=== PATIENT | male | born 1940 | race Caucasian/White ===

== ENCOUNTER 2020-07-11 08:40 | Inpatient (IN) ==
--- NOTE | 2020-07-12 10:07 | XRay Report ---
CLINICAL INFORMATION: preop COMPARISON: 06/30/2019 FINDINGS: Heart size, mediastinum and pulmonary vessels are normal. There is minor bibasilar atelectasis, but no infiltrates or effusions. 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 IMPRESSION: No acute disease Interpreted and Authenticated by: Aly Marquez 07/12/20
[2020-07-12 14:49] LABS: Basophils # (Auto) 0.04 K/mcL (0.00-0.20); Basophils % (Auto) 0.6 % (0.0-2.0); Eosinophils # (Auto) 0.41 K/mcL (0.00-0.70); Eosinophils % (Auto) 6.3 % (0.0-7.0); Hematocrit 37.9 % (41.0-55.0); Hemoglobin 11.9 g/dL (13.5-16.5); Lymphocytes # (Auto) 1.39 K/mcL (1.50-4.80); Lymphocytes % (Auto) 21.3 % (15.0-49.0); Mean Cell Volume 92.9 fL (80.0-100.0); Mean Corpuscular HGB Conc 31.4 g/dL (31.0-36.0); Mean Platelet Volume 10.2 fL (7.4-10.4); Monocytes # (Auto) 0.82 K/mcL (0.10-0.90); Monocytes % (Auto) 12.6 % (1.0-12.0); Neutrophils % (Auto) 59.2 % (38.0-78.0); Platelet Count 238 K/mcL (140-440); RBC 4.08 M/mcL (4.50-5.90); Red Cell Distribution Width 13.7 % (11.5-14.5); WBC 6.5 K/mcL (4.5-11.0)
[2020-07-12 16:05] LABS: Blood Urea Nitrogen 17 mg/dL (8-23); Calcium 9.6 mg/dL (8.6-10.4); Carbon Dioxide 24 mmol/L (22-30); Chloride 104 mmol/L (96-108); Glomerular Filtration Rate 90; Glucose 77 mg/dL (70-105)
[2020-07-12 16:24] LABS: Estimated Average Glucose(eAG) 111 mg/dL; Hemoglobin A1C 5.5 % Hgb (4.0-6.0)
[2020-07-18] MEDS ORDERED: SCOPOLAMINE 1 PATCH PATCH TOPICAL PRN (11:30)
[2020-07-18] MEDS ORDERED: IPRATROPIUM/ALBUTEROL 3 ML AMPUL.NEB NEB PRN ×2 (11:30→15:46)
[2020-07-18] MEDS ORDERED: VANCOMYCIN 1,000 MG in 0.9 % SODIUM CHLORIDE 250 ML IV ONE (13:17)
[2020-07-18] MEDS ORDERED: LEVOFLOXACIN 500 MG/100 ML BAG IV ONE (13:17)
[2020-07-18] MEDS ORDERED: DEXAMETHASONE 10 MG/ML VIAL ONE (13:37)
[2020-07-18] MEDS ORDERED: fentaNYL 100 MCG/2 ML VIAL IV ONE (13:37)
[2020-07-18] MEDS ORDERED: GLYCOPYRROLATE 0.2 MG/ML VIAL IV ONE (13:37)
[2020-07-18] MEDS ORDERED: HYDROmorphone 1 MG/ML SYRINGE ONE (13:37)
[2020-07-18] MEDS ORDERED: PROPOFOL 200 MG/20 ML VIAL IV ONE (13:37)
[2020-07-18] MEDS ORDERED: KETAMINE 100 MG/ML ML ONE (13:37)
[2020-07-18] MEDS ORDERED: ONDANSETRON 4 MG/2 ML VIAL ONE (13:37)
[2020-07-18] MEDS ORDERED: ACETAMINOPHEN 1,000 MG/100 ML BOTTLE IV ONE (15:46)
[2020-07-18] MEDS ORDERED: MEPERIDINE 25 MG/ML SYRINGE IV PRN (15:46)
[2020-07-18] MEDS ORDERED: ePHEDrine 50 MG/ML AMPUL IV PRN (15:46)
[2020-07-18] MEDS ORDERED: ONDANSETRON 4 MG/2 ML VIAL IV PRN ×2 (15:46→16:22)
[2020-07-18] MEDS ORDERED: fentaNYL 100 MCG/2 ML VIAL IV PRN (15:46)
[2020-07-18] MEDS ORDERED: PROMETHAZINE 25 MG/ML VIAL IV PRN (15:46)
[2020-07-18] MEDS ORDERED: LACTATED RINGERS 1,000 ML IV SCH (16:00)
[2020-07-18] MEDS ORDERED: OPIUM/BELLADONNA ALKALOIDS 60 MG SUPP.RECT PR ONE (16:08)
[2020-07-18] MEDS ORDERED: ACETAMINOPHEN 325 MG TABLET PO PRN (16:22)
[2020-07-18] MEDS ORDERED: CALCIUM CARBONATE 500 MG TAB.CHEW CHEWED PRN (16:22)
[2020-07-18] MEDS ORDERED: MAG HYDROX/AL HYDROX/SIMETH 30 ML ORAL.SUSP PO PRN (16:22)
[2020-07-18] MEDS ORDERED: MAGNESIUM HYDROXIDE 30 ML ORAL.SUSP PO PRN (16:22)
--- NOTE | 2020-07-18 16:22 | Brief Operative Note ---
Brief Operative Note Date of procedure: 07/18/20 Pre-op diagnosis: bladder outlet obstruction Post-op diagnosis: same Procedure: bipolar transurethral resection prostate Grafts/Implants: Yes ([address] escamilla catheter ) Anesthesia: GETA Findings: Massive gland with marked residual tissue remaining despite previous photovaporization of the prostate, large circumferential median lobe Complications: none Surgeon: Ethan Paredes Specimens Removed/Pathology: other (prostate chips) Condition: stable Disposition: PACU
[2020-07-18] MEDS ORDERED: VANCOMYCIN PER PHARMACY IV SCH (16:30)
[2020-07-18 17:01] LABS: POC Blood Urea Nitrogen 13 mg/dL (6-20); POC CO2 27 mmol/L (22-30); POC Calcium, Ionized 1.22 mmEq/L (1.16-1.32); POC Chloride 100 mEq/L (96-108); POC Creatinine 0.8 mg/dL (0.6-1.2); POC Glucose, Random 101 mg/dL (70-105); POC Hematocrit 35 % (41-55); POC Potassium 4.1 mEql/L (3.3-5.1); POC Sodium 138 mEq/L (133-145)
[2020-07-18] MEDS: LEVOFLOXACIN 500 MG TABLET PO SCH (17:17)
[2020-07-18] MEDS: INSULIN LISPRO 1 UNIT/0.01 ML UNIT SQ SCH ×2 (17:26→21:15)
[2020-07-18] MEDS: metFORMIN 500 MG TABLET PO SCH (17:26)
[2020-07-18] MEDS: OPIUM/BELLADONNA ALKALOIDS 60 MG SUPP.RECT PR SCH (17:27)
[2020-07-18] MEDS: HYDROcodone/APAP 5/325MG TABLET PO PRN (19:18)
[2020-07-18] MEDS: VANCOMYCIN 1,250 MG in 0.9 % SODIUM CHLORIDE 500 ML IV SCH (21:25)
[2020-07-18] MEDS: SENNOSIDES 1 TABLET PO SCH (21:30)
[2020-07-18] MEDS: DOCUSATE SODIUM 100 MG CAPSULE PO SCH (21:30)
[2020-07-18] MEDS: SIMVASTATIN 40 MG TABLET PO SCH (21:30)
[2020-07-18] MEDS: 0.9 % SODIUM CHLORIDE 10 ML SYRINGE IV SCH (21:31)
[2020-07-19] MEDS: OPIUM/BELLADONNA ALKALOIDS 60 MG SUPP.RECT PR SCH ×4 (00:20→18:05)
[2020-07-19] MEDS: 0.9 % SODIUM CHLORIDE 10 ML SYRINGE IV SCH ×3 (06:31→20:58)
[2020-07-19] MEDS: metFORMIN 500 MG TABLET PO SCH ×2 (07:26→16:57)
[2020-07-19] MEDS: INSULIN LISPRO 1 UNIT/0.01 ML UNIT SQ SCH ×4 (07:27→20:56)
[2020-07-19] MEDS: LOSARTAN 50 MG TABLET PO SCH (08:52)
[2020-07-19] MEDS: DOCUSATE SODIUM 100 MG CAPSULE PO SCH ×2 (08:52→20:56)
[2020-07-19] MEDS: LEVOFLOXACIN 500 MG TABLET PO SCH (08:52)
[2020-07-19] MEDS: FLUTICASONE PROPIONATE INH SCH (08:53)
[2020-07-19] MEDS ORDERED: ESCITALOPRAM 20 MG TABLET PO SCH (09:00)
[2020-07-19] MEDS: VANCOMYCIN 1,250 MG in 0.9 % SODIUM CHLORIDE 500 ML IV SCH ×2 (10:45→21:10)
--- NOTE | 2020-07-19 11:00 | Internal Med Progress Note ---
SUBJECTIVE Subjective Patient information: Note initiated : 07/19/20 at 10:52 am Service Date, if different from initiated Date: [] Patient: Papa Villanueva 80 y/o M admitted on 07/18/20 for Bipolar Transurethral Resection of Prostate. Patient did well overnight but feels fatigued. No fevers,no chills, no nausea, no emesis. Was able to get out of bed to chair but with assist Tolerating CBI and it is pink colored on slow drip all night. Rare burning to tip of penis. Chief Complaint: [] Constitutional Vitals: Vital Signs Temp Pulse Resp BP Pulse Ox 97.6 F 74 16 117/64 95 07/19/20 08:00 07/19/20 08:00 07/19/20 08:00 07/19/20 08:00 07/19/20 08:00 Period Temp Pulse Resp BP Sys/Ruiz Pulse Ox Last 24 Hr 97.6 F-98.4 F 50-77 16-20 112-150/59-81 92-100 Intake and Output 07/18/20 07/19/20 07/19/20 21:59 05:59 13:59 Intake Total 4450 42880 Output Total 5650 8550 400 Balance -1200 1750 -400 Weight 187 lb 6.4 oz Intake & Output: Intake & Output 07/18/20 07/19/20 07/19/20 21:59 05:59 13:59 Intake Total 4450 13602 Output Total 5650 8550 400 Balance -1200 1750 -400 Weight 187 lb 6.4 oz Intake: IV 1450 500 Lactated Ringers 1,000 ml @ 20 1000 mls/hr IV .Q24H JOE Rx#: [id number] Vancomycin 1,000 mg In Sodium 250 Chloride 0.9% 250 ml @ 250 mls/ hr IV ONCE ONE Rx#:[id number] Vancomycin 1,250 mg In Sodium 500 Chloride 0.9% 500 ml @ 333.3 mls/hr IV Q12H JOE Rx#: [id number] Oral 800 CBI Fluid 3000 9000 Output: Urine Catheter Amount 1200 400 CBI Fluid 4450 8550 Other: Urine Appearance Hematuria Clear Hematuria Small Blood Clots 3-way Urethral Clear Clear Hematuria Hematuria Small Blood Clots Urine Color [place] Blood Tinged 3-way Urethral [place] Blood Tinged Urine Odor Normal Normal 3-way Urethral Normal Normal Net CBI 1450 300 General appearance: cooperative and no acute distress Head Head exam: Present atraumatic and normocephalic Eye Eye exam: Present EOMI and normal appearance; Absent scleral icterus Respiratory Respiratory exam: Absent respiratory distress, stridor and wheezes Cardiovascular Cardiovascular exam: Present RRR GI/Abdominal GI/Abdominal exam: Present soft and tenderness (mild SP tenderness to deep palpation ); Absent distended, guarding, mass and rebound exam: Present normal inspection; Absent scrotal swelling, testicular tenderness and urethral discharge Additional comments: catheter in good position draining pink tinged urine Neurological Exam Neurological exam: Present alert and oriented X3 Psychiatric Psychiatric exam: Present normal affect and normal mood; Absent agitated and anxious OBJ DATA Labs CBC & Chem 7: 07/12/20 09:50 07/12/20 09:50 Labs: Abnormal Lab Results 07/18/20 16:36 POC Hct 35 L Meds: Medications Acetaminophen (Tylenol) 650 mg PO Q6HP PRN; Protocol PRN Reason: Per Pain Protocol/Fever > 101 Hydrocodone Bitart/Acetaminophen ([place] 5/325mg) 1 tab PO Q4HP PRN; Protocol PRN Reason: Per Pain Protocol Last Admin: 07/18/20 19:18 Dose: 1 tab Documented by: Al Hydrox/Mg Hydrox/Simethicone (Maalox) 30 ml PO Q6HP PRN PRN Reason: Dyspepsia Belladonna Alkaloids/Opium (B & O) 60 mg UT Q6H [facility] Last Admin: 07/19/20 06:30 Dose: 60 mg Documented by: Calcium Carbonate/Glycine (Tums) 1,000 mg CHEWED Q4HP PRN PRN Reason: Dyspepsia Diagnostic Test (Pha) (Accu-Chek) [address] [facility] Last Admin: 07/19/20 07:27 Dose: 1 each Documented by: Docusate Sodium (Colace) 100 mg PO BID [facility] Last Admin: 07/19/20 08:52 Dose: 100 mg Documented by: Vancomycin HCl 1,250 mg/ (Sodium Chloride) 500 mls @ 333.3 mls/hr IV Q12H [facility] Last Admin: 07/19/20 10:45 Dose: 333.3 mls/hr Documented by: Insulin Human Lispro (Humalog) 0 unit SQ [facility]; Protocol Last Admin: 07/19/20 07:27 Dose: 2 units Documented by: Levofloxacin (Levaquin) 500 mg PO DAILY [facility]; Protocol Last Admin: 07/19/20 08:52 Dose: 500 mg Documented by: Losartan Potassium (Cozaar) 50 mg PO DAILY [facility] Last Admin: 07/19/20 08:52 Dose: 50 mg Documented by: Magnesium Hydroxide (Milk Of Magnesia) 30 ml PO DAILYP PRN PRN Reason: Constipation Metformin HCl (Glucophage) 500 mg PO BIDCC [facility] Last Admin: 07/19/20 07:26 Dose: 500 mg Documented by: Ondansetron HCl (Zofran) 4 mg IV Q6HP PRN PRN Reason: Nausea And Vomiting Fluticasone Propionate 50 Mcg/Actuation Inhaler 1 dose INH DAILY [facility] Last Admin: 07/19/20 08:53 Dose: Not Given Documented by: Senna (Senokot) 2 tab PO [facility] Last Admin: 07/18/20 21:30 Dose: 2 tab Documented by: Simvastatin (Zocor) 40 mg PO [facility] Last Admin: 07/18/20 21:30 Dose: 40 mg Documented by: Sodium Chloride (Saline Flush) 10 ml IV Q8 [facility] Last Admin: 07/19/20 06:31 Dose: 10 ml Documented by: Vancomycin HCl (Vancomycin Per Pharmacy) 1 order IV UD [facility]; Protocol A/P Narrative A/P Narrative: POD#1 Bipolar TURP very large gland -Urine pink tinged on CBI -patient feels pretty fatigued -will get CBC, BMP, Mag, Phos and check -see how he does with attempt ambulate with assist today -likely cont CBI and home tomorrow -cont antibiotics while inpatient (vancomycin and levaquin) 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
[2020-07-19 12:04] LABS: Basophils # (Auto) 0.02 K/mcL (0.00-0.20); Basophils % (Auto) 0.1 % (0.0-2.0); Eosinophils # (Auto) 0.01 K/mcL (0.00-0.70); Eosinophils % (Auto) 0.1 % (0.0-7.0); Hematocrit 40.2 % (41.0-55.0); Hemoglobin 12.8 g/dL (13.5-16.5); Lymphocytes % (Auto) 9.6 % (15.0-49.0); Mean Cell Volume 92.8 fL (80.0-100.0); Mean Corpuscular HGB Conc 31.8 g/dL (31.0-36.0); Mean Platelet Volume 10.3 fL (7.4-10.4); Monocytes # (Auto) 1.29 K/mcL (0.10-0.90); Monocytes % (Auto) 9.6 % (1.0-12.0); Neutrophils % (Auto) 80.6 % (38.0-78.0); Platelet Count 252 K/mcL (140-440); RBC 4.33 M/mcL (4.50-5.90); Red Cell Distribution Width 13.4 % (11.5-14.5); WBC 13.5 K/mcL (4.5-11.0)
[2020-07-19 12:26] LABS: Blood Urea Nitrogen 15 mg/dL (8-23); Calcium 9.3 mg/dL (8.6-10.4); Carbon Dioxide 25 mmol/L (22-30); Chloride 102 mmol/L (96-108); Glomerular Filtration Rate 81; Glucose 152 mg/dL (70-105); Phosphorous 3.7 mg/dL (2.5-4.5)
[2020-07-19] MEDS ORDERED: cefTRIAXone 2 GM in DEXTROSE 5% IN WATER 50 ML IV SCH (14:00)
[2020-07-19] MEDS: SIMVASTATIN 40 MG TABLET PO SCH (20:55)
[2020-07-19] MEDS: SENNOSIDES 1 TABLET PO SCH (20:55)
[2020-07-19] MEDS: HYDROcodone/APAP 5/325MG TABLET PO PRN (20:55)
[2020-07-20] MEDS: OPIUM/BELLADONNA ALKALOIDS 60 MG SUPP.RECT PR SCH ×4 (00:28→18:23)
[2020-07-20] MEDS: 0.9 % SODIUM CHLORIDE 10 ML SYRINGE IV SCH ×2 (05:36→17:53)
[2020-07-20] MEDS: LEVOFLOXACIN 500 MG TABLET PO SCH (10:31)
[2020-07-20] MEDS: LOSARTAN 50 MG TABLET PO SCH (10:31)
[2020-07-20] MEDS: metFORMIN 500 MG TABLET PO SCH ×2 (10:31→17:51)
[2020-07-20] MEDS: DOCUSATE SODIUM 100 MG CAPSULE PO SCH (10:31)
[2020-07-20] MEDS: INSULIN LISPRO 1 UNIT/0.01 ML UNIT SQ SCH ×3 (10:31→17:54)
[2020-07-20] MEDS: VANCOMYCIN 1,250 MG in 0.9 % SODIUM CHLORIDE 500 ML IV SCH (10:32)
[2020-07-20] MEDS: FLUTICASONE PROPIONATE INH SCH (10:32)
[2020-07-20 14:33] LABS: Eosinophils % (Manual) 4 % (0-7); Hematocrit 35.6 % (41.0-55.0); Hemoglobin 11.3 g/dL (13.5-16.5); Lymphocytes % 10 % (15-49); Mean Cell Volume 93.4 fL (80.0-100.0); Mean Corpuscular HGB Conc 31.7 g/dL (31.0-36.0); Mean Platelet Volume 11.3 fL (7.4-10.4); Monocytes % (Manual) 10 % (1-12); Platelet Count 137 K/mcL (140-440); Platelet Estimate NORMAL (Normal); RBC 3.81 M/mcL (4.50-5.90); RBC Morphology NORMAL (Normal); Red Cell Distribution Width 13.9 % (11.5-14.5); Segmented Neutrophils % 76 % (38-78); WBC 11.5 K/mcL (4.5-11.0)
[2020-07-20 14:40] LABS: Blood Urea Nitrogen 15 mg/dL (8-23); Calcium 8.8 mg/dL (8.6-10.4); Carbon Dioxide 24 mmol/L (22-30); Chloride 104 mmol/L (96-108); Glomerular Filtration Rate 86; Glucose 93 mg/dL (70-105)
--- NOTE | 2020-07-20 14:45 | XRay Report ---
CLINICAL INFORMATION: Post op confusion COMPARISON: 07/12/2020 FINDINGS: Heart size, mediastinum and pulmonary vessels are normal. There is minor right lower lobe atelectasis. No infiltrates or effusions. Bones and soft tissues normal. IMPRESSION: Minor right lower lobe atelectasis Interpreted and Authenticated by: Aly Marquez 07/20/20
--- NOTE | 2020-07-20 19:44 | Discharge Plan ---
Discharge Plan Patient/Caregiver Discharge Instructions Activity: increase activity as tolerated Diet: Regular Diet Activity Restrictions/Additional Instructions: -drink plenty of water -urinate every few hours on a schedule. Cut off your fluids 2 hours prior to bedtime and empty your bladder before bed. -some blood in the urine is NORMAL - pink tinged to [place] colored - as your prostate heals -no strenuous activity or heavy lifting or abdominal straining as this can increase the blood in the urine -avoid constipation, this is a source abdominal straining and can increase blood in the urine -It is normal to have urgency and some episodes poor bladder control as your prostate is healing. This will improve. Wear a pad if needed -if any significant blood in the urine, clots, trouble urinating, inability to urinate or any worsening of condition - call the office or come to the emergency room -we are giving you an antibiotics for 5 days. Do NOT take your citalopram (escitalopram) until you finish the antibiotic (levofloxacin) -you can take the pyridium (turns your urine orange) for bladder discomfort -you can take 500 mg acetaminophen (Tylenol) with 400-600 mg Ibuprofen (Motrin) up to three times a day with food as needed for pain. They work better if you take them together at the same time. Prescriptions: New levofloxacin 500 mg tablet 500 mg PO QDAY Qty: 7 RF: 0 phenazopyridine [Pyridium] 100 mg tablet 100 mg PO TID PRN (Reason: bladder pain) Qty: 7 RF: 0 Continued metformin 1,000 mg tablet 500 mg PO BID RF: 0 omega-3 fatty acids-fish oil 684-1,200 mg capsule,delayed release(DR/EC) 1 cap PO BID RF: 0 aspirin [Adult Aspirin Regimen] 81 mg tablet,delayed release (DR/EC) 81 mg PO QDAY RF: 0 irbesartan 150 mg tablet 150 mg PO QDAY RF: 0 multivitamin,to-srpc-Na-FA-min 1 TAB tablet 1 tab PO DAILY RF: 0 simvastatin 40 MG tablet 40 mg PO HS RF: 0 polyethylene glycol 3350 [Miralax] 17 gram/dose powder 17 g PO BID Qty: 119 RF: 0 fluticasone propionate 50 mcg/actuation Blister With Device 1 inh INHALATION DAILY RF: 0 carbamide peroxide [Debrox] 6.5 % Drops 5 drp OTIC (EAR) Q12H RF: 0 Discontinued phenazopyridine 200 MG tablet 200 mg PO TIDP PRN (Reason: Pain) Qty: 8 RF: 0 tamsulosin 0.4 mg capsule 0.8 mg PO QHS Qty: 60 RF: 2 ciprofloxacin HCl [Cipro] 500 mg tablet 500 mg PO BID Qty: 30 RF: 0 escitalopram oxalate 20 mg tablet 20 mg PO DAILY Qty: 30 RF: 0 No Action (DME) BIPAP machine Qty: 1 RF: 0 (DME) CPAP Qty: 1 RF: 0 Follow Up Plan Follow up with: Ethan Paredes MD [Physician] - 07/29/20 8:30 am Patient Disposition: Home, Self-Care Discharge Orders: Discharge Order (Routine); Ordered 07/20/20 Ordered By: Ethan Paredes Interventions Interventions: IV at Discharge Last Done: 07/20/20 18:18
--- NOTE | 2020-07-21 00:31 | Operative Note ---
Operative Note Operative Note: Date of procedure: 07/18/20 Pre-op diagnosis: bladder outlet obstruction Post-op diagnosis: same Procedure: bipolar transurethral resection prostate Grafts/Implants: Yes ([address]amilla catheter ) Anesthesia: GETA Findings: Massive gland with marked residual tissue remaining despite previous photovaporization of the prostate, large circumferential median lobe Complications: none Surgeon: Ethan Paredes Specimens Removed/Pathology: other (prostate chips) Condition: stable Disposition: PACU Informed consent was obtained, and preoperative antibiotics were given. Patient was taken to the operative suite placed on the table in the supine position. Adequate anesthesia was initiated and patient was placed in the dorsolithotomy position and prepped and draped in usual sterile fashion. We began the procedure with the resectoscope with the visual obturator which was guided into the urethra through the very large prostate and into the bladder. The visual obturator was removed and the resection loop and handle were employed. The prostate was evaluated and seen to be 4 cm with markedly large residual lateral lobe tissue and a circumferential median lobe. Minimal evidence of any previous clearance of prostate tissue with his previous photo vaporization of the prostate other than some scar tissue adhering a portion of the lateral lobes together. We began the procedure with some resection of the very large heaped up median lobe. The median lobe was very vascular and challenging resection was required until we were able to level such closer to the trigone and achieve hemostasis. Attention was then turned to each lateral lobe, given their excessive length they had to be addressed in sections. Greater than 50% additional procedural time was required given the large size of the prostate and the marked amount of tissue. At the end of the resection, the 12:00 portion of the median lobe had a ball-valve like anatomy causing such to occasionally obstructed the bladder neck. We were able to resect around the tethered portion of it and free up the large chunk of tissue. At the end of the case the bladder neck and the prostatic fossa were wide open. The verumontanum and external sphincter were seen to be intact and both ureteral orifices were visualized and the bladder filled and drained easily. The like evacuator was used to remove all the prostatic chips. And we manually had to trap and pull out the larger chunks of median lobe. Hemostasis was seen to be quite good. A 24 [place] three-way Escamilla catheter was placed. The urine was clear to pale pink on minimal CBI. A belladonna opiate suppository was placed and patient went to recovery room in excellent condition.
--- NOTE | 2020-07-22 14:39 | Surgical Pathology Report ---
Histology Microscopic Diagnosis Specimen A- PROSTATE, TRANSURETHRAL RESECTION: -- BENIGN PROSTATIC HYPERTROPHY. -- NO CARCINOMA IDENTIFIED. (RLF:adj) Procedural Impression Bladder obstruction. Gross Description Received in formalin labeled prostate chips, are multiple fragments of pink-myers to bills-myers tissue ranging in size from 0.2 to 2.5 cm in greatest dimension and in aggregate measuring 7.1 x 8.5 x 1.9 cm. Fire Extinguisher Mechanic sections submitted in A1-A8. (KGW:sln) Electronically Signed Brittany Hamm MD, FCAP Electronically Signed 07/22/2020 2:38 PM
== END 2020-07-20 19:55 | disposition home or self-care (01) | DRG 713 ==
LOC: MEDSUR 07-18 10:44
PROVIDERS: ADMIT Urology; ATTEND Urology